=== PATIENT | female | born 1950 | race Hispanic/Latino ===

== ENCOUNTER 2017-12-11 12:08 | Emergency (ER) | payer OTHER ==
[2017-12-11 14:25] LABS: Protime INR 1.08
[2017-12-11 14:26] LABS: Absolute Lymphocytes (CBC) 0.9 K/uL (0.7-4.9); Absolute Monocytes 0.2 K/uL (0.1-1.3); Absolute Neutrophil 5.5 K/uL (1.8-8.0); Basophils % 0.3 % (0-1.3); Hematocrit 35.3 % (36.0-45.0); Lymphocytes % 13.8 % (15.3-44.8); MCH 30.5 pg (27.0-35.0); MCV 92.4 fL (80-100); MPV 9.1 fL (7.6-11.3); Monocytes % 3.4 % (3.3-12.3); RBC Red Blood Cell Count 3.82 M/uL (3.86-4.86)
--- NOTE | 2017-12-11 14:37 | ER ---
Nurse's Notes [facility] Name: Lisa Pierre Age: 67 yrs Sex: Female : 1950 Arrival Date: 12/11/2017 Time: 12:10 Bed 20 Private MD: Juventino Kirk Diagnosis: Epistaxis Presentation: 12/11 12:21 Presenting complaint: Patient states: heavy nose bleed that started around 11 am today, hj took a shower and when she got out it started; happened 2x already, last time was 2 months ago; taking blood thinners;. Transition of care: patient was not received from another setting of care. Onset of symptoms was December 11, 2017. Care prior to arrival: None. 12:21 Method Of Arrival: Ambulatory 12:21 Acuity: DYLAN 4 hj Triage Assessment: 12:24 General: Appears in no apparent distress. uncomfortable, Behavior is calm, cooperative, hj appropriate for age. Pain: Denies pain. Historical: - Allergies: 12:24 No Known Allergies; hj - Home Meds: 12:24 Plavix 75 mg Oral tab 1 tab once daily [Active]; atorvastatin oral oral [Active]; hj - PMHx: 12:24 Hyperlipidemia; hj - PSHx: 12:24 back Sx; stent x1 to heart; hj - Immunization history:: Adult Immunizations up to date. - Social history:: Smoking status: Patient/guardian denies using tobacco. Screenin:20 Abuse screen: Denies threats or abuse. Nutritional screening: No deficits noted. em Tuberculosis screening: No symptoms or risk factors identified. Fall Risk None identified. Assessment: 13:00 General: Appears in no apparent distress. uncomfortable, Behavior is calm, cooperative, em Reports nose bleed that started about 30 minutes ago, hx of blood thinners, takes Plavix 75mg. Pain: Denies pain. Neuro: Level of Consciousness is awake, alert, obeys commands, Oriented to person, place, time, situation. Neuro: Denies dizziness, numbness. Cardiovascular: Capillary refill < 3 seconds Patient's skin is warm and dry. Respiratory: Airway is patent Respiratory effort is even, unlabored, Respiratory pattern is regular, symmetrical. GI: Abdomen is round non-distended, Patient currently denies nausea, vomiting. : No signs and/or symptoms were reported regarding the genitourinary system. EENT: No signs and/or symptoms were reported regarding the EENT system. Derm: Skin is intact, Skin is pink, warm \T\ dry. Musculoskeletal: Range of motion: intact in all extremities. 13:15 Reassessment: Patient appears in no apparent distress at this time. I agree with above iw assessment by Napoleon Ward LVN. 14:19 Reassessment: Patient appears in no apparent distress at this time. Patient and/or em family updated on plan of care and expected duration. Pain level reassessed. Patient is alert, oriented x 3, equal unlabored respirations, skin warm/dry/pink. 14:55 Reassessment: Patient appears in no apparent distress at this time. Patient and/or em family updated on plan of care and expected duration. Pain level reassessed. Patient is alert, oriented x 3, equal unlabored respirations, skin warm/dry/pink. Vital Signs: 12:25 BP 158 / 89; Pulse 102; Resp 18; Temp 98.3(O); Pulse Ox 97% on R/A; Weight 88.9 kg; hj Height 5 ft. 7 in. (170.18 cm); Pain 0/10; 14:08 BP 143 / 89; Pulse 85; Resp 16; Pulse Ox 99% on R/A; mh5 14:55 BP 133 / 87; Pulse 94; Resp 15; Pulse Ox 99% on R/A; Pain 0/10; em 12:25 Body Mass Index 30.70 (88.90 kg, 170.18 cm) ED Course: 12:10 Patient arrived in ED. mr 12:10 Juventino Kirk DO is Private Physician. mr 12:23 Triage completed. hj 12:26 Arm band placed on left wrist. hj 12:43 Renita Macias [facility]-C [facility]. kb 12:43 Fabio Bowden MD is Attending Physician. kb 13:00 Bed in low position. Call light in reach. Side rails up X2. Adult w/ patient. nose clap em placed. 13:00 No provider procedures requiring assistance completed. em 14:00 Inserted saline lock: 22 gauge in left antecubital area, using aseptic technique. Blood em collected. 14:00 Initial lab(s) drawn, by me, sent to lab. em 14:10 Napoleon Ward LVN is Primary Nurse. em 15:07 IV discontinued, intact, bleeding controlled, No redness/swelling at site. Pressure em dressing applied. Administered Medications: No medications were administered Outcome: 14:36 Discharge ordered by . kb 15:07 Discharged to home via wheelchair. em 15:07 Condition: good 15:07 Discharge instructions given to patient, family, Instructed on discharge instructions, follow up and referral plans. Demonstrated understanding of instructions, follow-up care. 15:08 Patient left the ED. em Signatures: Renita Macias, GRIFFIN ELIGIBILITY ANALYST-Emma Martínez mr Ward Napoleon, CONTENT MANAGER CONTENT MANAGER em Minerva Marquez, RN MINO Estevan Barriga RN RN Emma Billings[facility] Corrections: (The following items were deleted from the chart) 12:26 12:25 Pulse 102bpm; Resp 18bpm; Pulse Ox 97% RA; Temp 98.3F Oral; 88.9 kg; Height 5 ft. hj 7 in.; BMI: 30.7; Pain 0/10; hj
--- NOTE | 2017-12-11 14:37 | EDPHYS ---
Physician Documentation [facility] Name: Lisa Pierre Age: 67 yrs Sex: Female : 1950 Arrival Date: 12/11/2017 Time: 12:10 Bed 20 Private MD: Juventino Kirk ED Physician Fabio Bowden HPI: 12/11 13:05 This 67 yrs old Female presents to ER via Ambulatory with complaints of Nose kb Bleed. 13:05 The patient presents with a nose bleed, that is apparently anterior, from the right kb nare, occurred from an unknown cause, that is continuous small amount without clots, causative factors include: unknown, and the bleeding is not resolved and continues in ER. Onset: The symptoms/episode began/occurred just prior to arrival. Modifying factors: The symptoms are alleviated by nothing. the symptoms are aggravated by nothing. Associated signs and symptoms: Loss of consciousness: the patient experienced no loss of consciousness, Pertinent positives: bleeding. Severity of symptoms: At their worst the symptoms were mild moderate in the emergency department the symptoms are unchanged. The patient has experienced a previous episode, approximately 2 months ago. The patient has not recently seen a physician. Historical: - Allergies: 12:24 No Known Allergies; hj - Home Meds: 12:24 Plavix 75 mg Oral tab 1 tab once daily [Active]; atorvastatin oral oral [Active]; hj - PMHx: 12:24 Hyperlipidemia; hj - PSHx: 12:24 back Sx; stent x1 to heart; hj - Immunization history:: Adult Immunizations up to date. - Social history:: Smoking status: Patient/guardian denies using tobacco. ROS: 13:05 Constitutional: Negative for fever, chills, and weight loss, Cardiovascular: Negative kb for chest pain, palpitations, and edema, Respiratory: Negative for shortness of breath, cough, wheezing, and pleuritic chest pain, Abdomen/GI: Negative for abdominal pain, nausea, vomiting, diarrhea, and constipation, MS/Extremity: Negative for injury and deformity, Skin: Negative for injury, rash, and discoloration, Neuro: Negative for headache, weakness, numbness, tingling, and seizure. 13:05 ENT: Positive for nose bleed. Exam: 13:05 Constitutional: This is a well developed, well nourished patient who is awake, alert, kb and in no acute distress. Head/Face: Normocephalic, atraumatic. Chest/axilla: Normal chest wall appearance and motion. Nontender with no deformity. No lesions are appreciated. Cardiovascular: Regular rate and rhythm with a normal S1 and S2. No gallops, murmurs, or rubs. Normal PMI, no JVD. No pulse deficits. Respiratory: Lungs have equal breath sounds bilaterally, clear to auscultation and percussion. No rales, rhonchi or wheezes noted. No increased work of breathing, no retractions or nasal flaring. Abdomen/GI: Soft, non-tender, with normal bowel sounds. No distension or tympany. No guarding or rebound. No evidence of tenderness throughout. Skin: Warm, dry with normal turgor. Normal color with no rashes, no lesions, and no evidence of cellulitis. MS/ Extremity: Pulses equal, no cyanosis. Neurovascular intact. Full, normal range of motion. Neuro: Awake and alert, GCS 15, oriented to person, place, time, and situation. Cranial nerves II-XII grossly intact. Motor strength 5/5 in all extremities. Sensory grossly intact. Cerebellar exam normal. Normal gait. 13:05 ENT: Nose: bleeding, is seen from the right nare, and is minimal. Vital Signs: 12:25 BP 158 / 89; Pulse 102; Resp 18; Temp 98.3(O); Pulse Ox 97% on R/A; Weight 88.9 kg; hj Height 5 ft. 7 in. (170.18 cm); Pain 0/10; 14:08 BP 143 / 89; Pulse 85; Resp 16; Pulse Ox 99% on R/A; mh5 14:55 BP 133 / 87; Pulse 94; Resp 15; Pulse Ox 99% on R/A; Pain 0/10; em 12:25 Body Mass Index 30.70 (88.90 kg, 170.18 cm) MDM: 12:43 Patient medically screened. kb 13:05 Data reviewed: vital signs, nurses notes. Data interpreted: Pulse oximetry: on room air kb is 97 %. Interpretation: normal. 14:29 Counseling: I had a detailed discussion with the patient and/or guardian regarding: the kb historical points, exam findings, and any diagnostic results supporting the discharge/admit diagnosis, lab results, the need for outpatient follow up, an ENT specialist, to return to the emergency department if symptoms worsen or persist or if there are any questions or concerns that arise at home. 14:36 ED course: Bleeding has resolved. . kb 12/11 13:34 Order name: Protime (+inr) kb 12/11 13:34 Order name: Ptt, Activated kb 12/11 13:34 Order name: CBC with Diff kb 12/11 14:28 Order name: Protime (+INR); Complete Time: 14:29 EDMS 12/11 14:28 Order name: PTT, Activated Partial Thromb; Complete Time: 14:29 EDMS 12/11 14:28 Order name: CBC with Automated Diff; Complete Time: 14:29 EDMS Administered Medications: No medications were administered Disposition: 17:30 Co-signature as Attending Physician, Fabio Bowden MD I agree with the assessment and kdr plan of care. Disposition: 12/11/17 14:36 Discharged to Home. Impression: Epistaxis. - Condition is Stable. - Discharge Instructions: Nosebleed, [id number]. - Medication Reconciliation Form, Thank You Letter, Antibiotic Education, Prescription Opioid Use form. - Follow up: Emergency Department; When: As needed; Reason: Worsening of condition. Follow up: Private Physician; When: 2 - 3 days; Reason: Recheck today's complaints, Continuance of care, Re-evaluation by your physician. Signatures: Dispatcher [employer] Renita Lovett, SOCIAL SCIENCES INSTRUCTOR-C SOCIAL SCIENCES INSTRUCTOR-Geraldob Fabio Bowden MD MD kdr Munoz, Edgar, BRAND DESIGNER BRAND DESIGNER Estevan Umanzor, RN RN
[2017-12-11 15:19] VITALS: TEMP 98.3
[2017-12-11 15:21] VITALS: O2SAT 99
[2017-12-11 15:22] VITALS: BP 133/87
== END 2017-12-11 15:08 | disposition home or self-care (01) ==
LOC: ER 12:08
DX: R04.0 Epistaxis (principal); E78.5 Hyperlipidemia, unspecified; Z95.818 Presence of other cardiac implants and grafts; Z79.01 Long term (current) use of anticoagulants
CPT/HCPCS: 36415; 85025; 85610; 85730; 99283

== ENCOUNTER 2019-11-28 15:26 | Emergency (ER) | payer OTHER ==
--- OUTSIDE RECORDS SUMMARY | 2019-11-28 15:28 | XMS REPORT ---
:1950 Author Organization eClinicalWorks Care Team Providers Name Role Phone Juventino Kirk Provider Role Unavailable Allergies, Adverse Reactions, Alerts Substance Reaction Event Type N.K.D.A. 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 Problem Degenerative joint disease M19.90 Active Assessment Urinary incontinence, unspecified R32 Active type Problem Vitamin B 12 deficiency E53.8 Active Assessment Non-traumatic compression fracture M48.54XA Active of fourth thoracic vertebra, initial encounter Problem Coronary artery disease I25.10 Active Problem Other cervical disc degeneration, M50.30 Active unspecified cervical region Problem Osteoporosis M81.0 Active Problem Adult BMI 32.0-32.9 kg/sq m Z68.32 Active Problem Urinary incontinence, unspecified R32 Active type Assessment Prediabetes R73.03 Active Assessment Osteoporosis M81.0 Active Problem Varicose veins of left lower I83.892 Active extremity with other complications Assessment Varicose veins of left lower I83.892 Active extremity with other complications Problem 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 Problem Carotid artery occlusion I65.29 Active Problem Rotator cuff syndrome of right M75.101 Active shoulder Problem Prediabetes R73.03 Active Problem Non-traumatic compression fracture M48.54XA Active of fourth thoracic vertebra, initial encounter Problem History of compression fracture of Z87.81 Active vertebral column Assessment Hyperlipidemia, mixed E78.2 Active Problem Generalized osteoarthrosis M15.9 Active Problem Hyperlipidemia, mixed E78.2 Active Problem Primary osteoarthritis of both M17.0 Active knees Problem Disc degeneration, lumbosacral M51.37 Active Medications Medication Code Code Instructions Start End Status Dosage System Date Date myrbetriq XR [facility] 57566086123 50mg po Qday DecemberJul 12, Active 1 tablet 2018 Tylenol # [address] [facility] 0 300/30mg PO BID Active one tab PRN Lipitor [facility] 68015360522 40 MG Orally Active 1 tablet Once a day Aspir-81 [facility] 67741475563 81 MG Orally Active 1 tablet Once a day Prolia [facility] 50929068985 60 MG/ML Active 60 mg by Subcutaneous injection every 6 months Lipitor [facility] 41069132858 40 MG Orally Active 1 tablet Once a day Results No Known Results Summary Purpose eClinicalWorks Submission
--- OUTSIDE RECORDS SUMMARY | 2019-11-28 15:29 | XMS REPORT ---
:1950 Author Organization eClinicalWorks Care Team Providers Name Role Phone Juventino Kirk Provider Role Unavailable Allergies, Adverse Reactions, Alerts Substance Reaction Event Type N.K.D.A. 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 Problem Degenerative joint disease M19.90 Active Assessment Carotid artery occlusion I65.29 Active Problem Vitamin B 12 deficiency E53.8 Active Assessment Urinary incontinence, unspecified R32 Active type Problem Coronary artery disease I25.10 Active Problem Other cervical disc degeneration, M50.30 Active unspecified cervical region Problem Osteoporosis M81.0 Active Problem Adult BMI 32.0-32.9 kg/sq m Z68.32 Active Problem Urinary incontinence, unspecified R32 Active type Assessment Hyperlipidemia, mixed E78.2 Active Assessment Osteoporosis M81.0 Active Problem Varicose [...] Active of fourth thoracic vertebra, initial encounter Assessment Vitamin B 12 deficiency E53.8 Active Problem History of compression fracture of Z87.81 Active vertebral column Assessment Coronary artery disease involving I25.119 Active [employer] coronary artery of [place] heart with angina pectoris Problem Generalized osteoarthrosis M15.9 Active Problem Hyperlipidemia, mixed E78.2 Active Problem Primary osteoarthritis of both M17.0 Active knees Problem Disc degeneration, lumbosacral M51.37 Active Medications Medication Code Code Instructions Start End Status Dosage System Date Date Tylenol # 3 NDC 0 300/30mg PO BID Active one tab PRN Aspir-81 [facility] 09744691387 81 MG Orally Active 1 tablet Once a day Lipitor [facility] 92876967059 40 MG Orally Active 1 tablet Once a day Prolia [facility] 51986849457 60 MG/ML Active 60 mg by Subcutaneous injection every 6 months Results No Known Results Summary Purpose eClinicalWorks Submission
--- NOTE | 2019-11-28 16:22 | ER ---
Nurse's Notes [facility] Name: Lisa Pierre Age: 69 yrs Sex: Female : 1950 Arrival Date: 11/28/2019 Time: 15:29 Bed 25 Private MD: Diagnosis: Sprain of ankle Presentation: 11/27 15:33 Chief complaint: Patient's son or daughter states: she said that when she was in [place] tw2 about a week ago she slipped and her ankle rolled its her LEFT ankle, she is able to walk but it starts hurting her more and more. Coronavirus screen: The patient has NOT traveled to a country currently being monitored by the CDC within the last 14 days. Ebola Screen: Patient denies travel to an Ebola-affected area in the 21 days before illness onset. Initial Sepsis Screen: Does the patient meet any 2 criteria? No. Patient's initial sepsis screen is negative. Does the patient have a suspected source of infection? No. Patient's initial sepsis screen is negative. Risk Assessment: Do you want to hurt yourself or someone else? Patient reports no desire to harm self or others. 15:33 Method Of Arrival: Ambulatory tw2 15:33 Acuity: DYLAN 4 tw2 Triage Assessment: 15:32 General: Appears in no apparent distress. obese, well groomed, Behavior is calm, tw2 cooperative, appropriate for age. 16:08 Pain: Complains of pain in left lateral ankle Pain currently is 10 out of 10 on a pain ls4 scale. Neuro: No deficits noted. Cardiovascular: No deficits noted. Respiratory: No deficits noted. Historical: - Allergies: 15:36 No Known Allergies; tw2 - Home Meds: 15:32 atorvastatin Oral [Active]; tw2 15:36 aspirin 81 mg Oral chew 1 tab once daily [Active]; tw2 - PMHx: 15:32 Hyperlipidemia; tw2 - PSHx: 15:32 back Sx; stent x1 to heart; tw2 - Immunization history:: Adult Immunizations. - Social history:: Smoking status: . Screenin:35 Abuse screen: Denies threats or abuse. Denies injuries from another. Nutritional ls4 screening: No deficits noted. Tuberculosis screening: No symptoms or risk factors identified. Fall Risk None identified. Assessment: 16:09 General: SEE TRIAGE. ls4 Vital Signs: 15:33 BP 130 / 76; Pulse 76; Resp 16; Temp 98.1(TE); Pulse Ox 98% on R/A; Weight 90.72 kg tw2 (R); Pain 10/10; ED Course: 15:29 Patient arrived in ED. ag5 15:32 Arm band placed on. tw2 15:35 Triage completed. tw2 15:35 Patient has correct armband on for positive identification. Bed in low position. Call ls4 light in reach. Side rails up X 1. Adult w/ patient. 15:35 No provider procedures requiring assistance completed. Patient did not have IV access ls4 during this emergency room visit. 15:46 Farzaneh Carr FNP-C is PHCP. snw 15:46 Pee Wolfe MD is Attending Physician. snw 16:07 Maria Guadalupe Reid, RN is Primary Nurse. ls4 16:23 Ankle Left 3 View XRAY In Process Unspecified. EDMS Administered Medications: 16:57 Drug: [place] 5 mg-325 mg 1 tabs Route: PO; ls4 Outcome: 16:21 Discharge ordered by . snw 17:20 Patient left the ED. ls4 Signatures: Dispatcher [employer] EDMS Farzaneh Carr FNP-C FREIGHT AND PASSENGER AGENT-Csnw Kaylie Ray RN RN tw2 Maria Guadalupe Reid, RN RN ls4 Buster Srivastava ag5 Corrections: (The following items were deleted from the chart) 15:36 15:32 Allergies: No Known Allergies; tw2 tw2 15:36 15:32 Home Meds: Plavix 75 mg Oral tab 1 tab once daily; tw2 tw2
--- NOTE | 2019-11-28 16:22 | EDPHYS ---
Physician Documentation [facility] Name: Lisa Pierre Age: 69 yrs Sex: Female : 1950 Arrival Date: 11/28/2019 Time: 15:29 Bed 25 Private MD: ED Physician Pee Wolfe HPI: 11/27 16:16 This 69 yrs old Female presents to ER via Ambulatory with complaints of ankle snw injury. 16:16 The patient presents with decreased range of motion, swelling, tenderness. The snw complaints affect the left ankle. Onset: The symptoms/episode began/occurred suddenly, 1 week(s) ago, and became persistent. Context: resulted from a mis-step by the patient, stepped on a rock, The mechanism of injury involved inversion of the affected ankle. The patient can partially bear weight on the affected extremity. Associated signs and symptoms: Pertinent positives: swelling. Severity of symptoms: At their worst the symptoms were moderate. The patient has not experienced similar symptoms in the past. It is unknown whether or not the patient has recently seen a physician. Historical: - Allergies: 15:36 No Known Allergies; tw2 - Home Meds: 15:32 atorvastatin Oral [Active]; tw2 15:36 aspirin 81 mg Oral chew 1 tab once daily [Active]; tw2 - PMHx: 15:32 Hyperlipidemia; tw2 - PSHx: 15:32 back Sx; stent x1 to heart; tw2 - Immunization history:: Adult Immunizations. - Social history:: Smoking status: . ROS: 16:15 Constitutional: Negative for fever, chills, and weight loss, Eyes: Negative for injury, snw pain, redness, and discharge, ENT: Negative for injury, pain, and discharge, Neck: Negative for injury, pain, and swelling, Cardiovascular: Negative for chest pain, palpitations, and edema, Respiratory: Negative for shortness of breath, cough, wheezing, and pleuritic chest pain, Abdomen/GI: Negative for abdominal pain, nausea, vomiting, diarrhea, and constipation, Back: Negative for injury and pain, : Negative for injury, bleeding, discharge, and swelling, Skin: Negative for injury, rash, and discoloration, Neuro: Negative for headache, weakness, numbness, tingling, and seizure. 16:15 MS/extremity: Positive for injury or acute deformity, pain, swelling, of the left lateral ankle and anterior foot. Exam: 16:14 Constitutional: This is a well developed, well nourished patient who is awake, alert, snw and in no acute distress. Head/Face: Normocephalic, atraumatic. Eyes: Pupils equal round and reactive to light, extra-ocular motions intact. Lids and lashes normal. Conjunctiva and sclera are non-icteric and not injected. Cornea within normal limits. Periorbital areas with no swelling, redness, or edema. ENT: Nares patent. No nasal discharge, no septal abnormalities noted. Tympanic membranes are normal and external auditory canals are clear. Oropharynx with no redness, swelling, or masses, exudates, or evidence of obstruction, uvula midline. Mucous membranes moist. Neck: Trachea midline, no thyromegaly or masses palpated, and no cervical lymphadenopathy. Supple, full range of motion without nuchal rigidity, or vertebral point tenderness. No Meningismus. Chest/axilla: Normal chest wall appearance and motion. Nontender with no deformity. No lesions are appreciated. Cardiovascular: Regular rate and rhythm with a normal S1 and S2. No gallops, murmurs, or rubs. Normal PMI, no JVD. No pulse deficits. Respiratory: Lungs have equal breath sounds bilaterally, clear to auscultation and percussion. No rales, rhonchi or wheezes noted. No increased work of breathing, no retractions or nasal flaring. Abdomen/GI: Soft, non-tender, with normal bowel sounds. No distension or tympany. No guarding or rebound. No evidence of tenderness throughout. Back: No spinal tenderness. No costovertebral tenderness. Full range of motion. Skin: Warm, dry with normal turgor. Normal color with no rashes, no lesions, and no evidence of cellulitis. Neuro: Awake and alert, GCS 15, oriented to person, place, time, and situation. Cranial nerves II-XII grossly intact. Motor strength 5/5 in all extremities. Sensory grossly intact. Cerebellar exam normal. Normal gait. Psych: Awake, alert, with orientation to person, place and time. Behavior, mood, and affect are within normal limits. 16:14 Musculoskeletal/extremity: Extremities: grossly normal except: noted in the left ankle/anterior foot: swelling, tenderness, mild warmth, ROM: no acute changes, Circulation is intact in all extremities. Sensation intact. Vital Signs: 15:33 BP 130 / 76; Pulse 76; Resp 16; Temp 98.1(TE); Pulse Ox 98% on R/A; Weight 90.72 kg tw2 (R); Pain 10/10; MDM: 15:55 Patient medically screened. snw 16:23 Data reviewed: vital signs, nurses notes. Data interpreted: Pulse oximetry: on room air snw is 98 %. Interpretation: normal. Counseling: I had a detailed discussion with the patient and/or guardian regarding: the historical points, exam findings, and any diagnostic results supporting the discharge/admit diagnosis, the presence of at least one elevated blood pressure reading (>120/80) during this emergency department visit, radiology results, the need for outpatient follow up, to return to the emergency department if symptoms worsen or persist or if there are any questions or concerns that arise at home. Special discussion: Based on the history and exam findings, there is no indication for further emergent testing or inpatient evaluation. I discussed with the patient/guardian the need to see the orthopedic surgeon for further evaluation of the symptoms. 11/27 15:47 Order name: Ankle Left 3 View XRAY; Complete Time: 16:34 snw 11/27 16:20 Order name: Walking boot; Complete Time: 16:48 snw Administered Medications: 16:57 Drug: [place] 5 mg-325 mg 1 tabs Route: PO; ls4 Disposition: 17:36 Co-signature as Attending Physician, Pee Wolfe MD. rn Disposition: 11/28/19 16:21 Discharged to Home. Impression: Sprain of ankle. - Condition is Stable. - Discharge Instructions: Ankle Sprain, How to Use a Walker, Cryotherapy, Heat Therapy, Walking Boot. - Prescriptions for Mobic 7.5 mg Oral Tablet - take 1 tablet by ORAL route once daily take with food; 20 tablet. - Medication Reconciliation Form, Thank You Letter, Antibiotic Education, Prescription Opioid Use form. - Follow up: Emergency Department; When: As needed; Reason: Worsening of condition. Follow up: Private Physician; When: 2 - 3 days; Reason: Recheck today's complaints, Continuance of care, Re-evaluation by your physician. Signatures: Dispatcher [facility] Sherrie Ramosy, DATA SCIENTIST-C DATA SCIENTIST-Csnw Pee Wolfe MD MD rn Wise, Tara, RN RN tw2 Maria Guadalupe Reid RN RN ls4 Corrections: (The following items were deleted from the chart) 15:36 15:32 Allergies: No Known Allergies; 15:36 15:32 Home Meds: Plavix 75 mg Oral tab 1 tab once daily; 17:20 16:21 11/28/2019 16:21 Discharged to Home. Impression: Sprain of ankle. Condition is ls4 Stable. Forms are Medication Reconciliation Form, Thank You Letter, Antibiotic Education, Prescription Opioid Use. Follow up: Emergency Department; When: As needed; Reason: Worsening of condition. Follow up: Private Physician; When: 2 - 3 days; Reason: Recheck today's complaints, Continuance of care, Re-evaluation by your physician. snw
--- NOTE | 2019-11-28 16:30 | RAD REPORT ---
EXAM DESCRIPTION: RAD - Ankle Left 3 View -11/28/2019 4:23 pm CLINICAL HISTORY: Left ankle pain status post injury FINDINGS: No fracture or dislocation is seen. Soft tissue swelling. Osteoporosis
[2019-11-28] MEDS ORDERED: HYDROCODONE/APAP 5/325 MG TAB ONE (17:06)
[2019-11-28 17:33] VITALS: BP 130/76; TEMP 98.1; O2SAT 98
== END 2019-11-28 17:20 | disposition home or self-care (01) ==
LOC: ER 15:26
DX: S93.402A Sprain of unspecified ligament of left ankle, initial encounter (principal); W22.8XXA Striking against or struck by other objects, initial encounter; Y93.01 Activity, walking, marching and hiking; Y92.9 Unspecified place or not applicable; E78.5 Hyperlipidemia, unspecified; Z79.82 Long term (current) use of aspirin; Z95.818 Presence of other cardiac implants and grafts
CPT/HCPCS: 99283

== ENCOUNTER 2024-05-13 06:00 | Observation (INO) | payer OTHER ==
[2024-05-07 09:39] LABS: Absolute Lymphocytes (CBC) 2.2 K/uL (0.7-4.9); Absolute Monocytes 0.6 K/uL (0.1-1.3); Absolute Neutrophil 2.8 K/uL (1.8-8.0); Basophils % 0.5 % (0-1.3); Eosinophils % 0.9 % (0-4.4); Hematocrit 39.9 % (36.0-45.0); Lymphocytes % 38.9 % (15.3-44.8); MCH 31.9 pg (27.0-35.0); MCHC 32.7 g/dL (32.0-36.0); MCV 97.7 fL (80-100); MPV 9.3 fL (7.6-11.3); Monocytes % 10.6 % (3.3-12.3); Neutrophils % 49.1 % (41.7-73.7); Platelets 183 thou/uL (152-406); RBC Red Blood Cell Count 4.08 M/uL (3.86-4.86); Red Cell Distribution Width 13.7 % (12.1-15.2)
[2024-05-07 09:55] LABS: Anion Gap 6.4 mEq/L (5.0-15.0); Potassium 4.4 mEq/L (3.5-5.1)
--- NOTE | 2024-05-07 10:06 | RAD REPORT ---
EXAM DESCRIPTION: Nan Shi (2 Views)05/07/2024 9:56 am CLINICAL HISTORY: Preop for knee surgery COMPARISON: 2020 FINDINGS: The lungs appear clear of acute infiltrate. The heart is mildly to moderately enlarged Cement has been placed into vertebral body fractures IMPRESSION: No acute abnormalities displayed
[2024-05-07 10:08] LABS: PT Prothrombin Time 11.3 SECONDS (9.4-12.5); Protime INR 1.01
[2024-05-07 10:09] LABS: PTT, Activated Partial Thromb 35.1 SECONDS (24.3-36.9)
[2024-05-13] MEDS: LIDOCAINE 1% MPF 5 ML VIAL ONE (06:10)
[2024-05-13] MEDS: dexAMETHasone 4 MG/ML VIAL ONE (06:11)
[2024-05-13] MEDS: FENTANYL CITR 100 MCG/2 ML ONE (06:11)
[2024-05-13] MEDS: EPINEPHRINE 1 MG/ML VIAL ONE (06:11)
[2024-05-13] MEDS: DEXMEDETOMIDINE HCL 200 MCG/2 ML VIAL ONE (06:11)
[2024-05-13] MEDS: MIDAZOLAM HCL 2 MG/2 ML INJ ONE (06:12)
[2024-05-13] MEDS: BUPIVACAINE 0.25% PF 30 ML VIAL ONE ×2 (06:12→08:55)
[2024-05-13] MEDS: MAGNESIUM SULFATE 1 gm IVPB 1 GM/100 ML BAG IV ONE (06:12)
[2024-05-13] MEDS ORDERED: LIDOCAINE 2% MPF 5 ML VIAL ONE (06:28)
[2024-05-13] MEDS ORDERED: LIDOCAINE 1% MPF 5 ML VIAL ONE (06:28)
[2024-05-13] MEDS ORDERED: KETAMINE HCL IN 0.9 % NACL 50 MG/5 ML SYRINGE IV ONE (06:29)
[2024-05-13] MEDS ORDERED: propofoL 200 MG/20 ML VIAL IV ONE (06:29)
[2024-05-13] MEDS: Ringers Lactate 1,000 ML IV ONE ×2 (06:30→09:49)
[2024-05-13] MEDS: GABAPENTIN 100 MG CAP ONE (06:33)
[2024-05-13] MEDS: CELECOXIB 100 MG CAPSULE ONE (06:38)
[2024-05-13] MEDS: ACETAMINOPHEN 500 MG TAB ONE (06:39)
[2024-05-13] MEDS: Oxycodone HCl/Acetaminophen 5/325 MG TAB ONE (06:40)
[2024-05-13] MEDS: TRANEXAMIC ACID 1,000 MG/10 ML VIAL IV ONE (07:07)
[2024-05-13] MEDS: CEFAZOLIN SODIUM 2 GM/VIAL ONE (08:15)
[2024-05-13] MEDS ORDERED: GLYCOPYRROLATE 0.2 MG/ML SYR ONE (08:27)
[2024-05-13] MEDS ORDERED: ONDANSETRON 4 MG/2 ML VIAL ONE (08:50)
[2024-05-13] MEDS ORDERED: EPHEDRINE SULF 50 MG/ML VIAL ONE (08:55)
--- NOTE | 2024-05-13 10:58 | P.BOP ---
Preoperative diagnosis: right knee osteoarthritis Postoperative diagnosis: Same Primary procedure: Right total knee arthroplasty Forestry Biology Specialist: NONE,NONE Estimated blood loss: 40 cc Specimen: Right knee bone remnants Findings: See dictation Anesthesia: General Complications: None Implants: [employer] [place] 12 CR femur, G tibia, 10 CR poly, 35 patella Fluids & blood products: Per anesthesia record; TT: 81 mins @ 300 mmHg Transferred to: Recovery Room Condition: Good
[2024-05-13] MEDS ORDERED: DOCUSATE NA 100 MG CAP PO PRN (11:06)
[2024-05-13] MEDS ORDERED: ONDANSETRON 4 MG/2 ML VIAL IV PRN (11:06)
[2024-05-13] MEDS ORDERED: ACETAMINOPHEN 325 MG TABLET PO PRN (11:06)
[2024-05-13] MEDS ORDERED: TRAMADOL HCL 50 MG TAB PO PRN (11:09)
--- NOTE | 2024-05-13 11:34 | RAD REPORT ---
EXAM DESCRIPTION: RAD - Knee Right 2 View - 05/13/2024 11:15 am CLINICAL HISTORY: Post Op COMPARISON: No comparisons FINDINGS/IMPRESSION: Status post right knee arthroplasty. No evidence of immediate hardware complica tions. No fractures are identified. Alignment is normal.
[2024-05-13 11:54] LABS: Hematocrit 33.5 % (36.0-45.0); Hemoglobin 11.1 g/dL (12.0-15.0)
[2024-05-13 15:15] VITALS: BMI 29.7
[2024-05-13 15:32] VITALS: O2SAT 98
[2024-05-13] MEDS: CEFAZOLIN SODIUM 2 GM in NA CHLORIDE 0.9% 100 ML IVPB SCH (17:38)
[2024-05-13] MEDS: ATORVASTATIN 40 MG TAB PO SCH (21:33)
[2024-05-14] MEDS: HYDROCODONE/APAP 7.5/325 MG TAB PO PRN (01:10)
[2024-05-14] MEDS: ENOXAPARIN 30 MG/0.3 ML SQ SCH (05:30)
[2024-05-14 07:21] LABS: Hematocrit 32.2 % (36.0-45.0); Hemoglobin 10.7 g/dL (12.0-15.0)
[2024-05-14] MEDS: CELECOXIB 100 MG CAPSULE PO SCH (08:41)
[2024-05-14 13:09] VITALS: BP 102/46; TEMP 97.7
[2024-05-14] MEDS ORDERED: ENOXAPARIN 30 MG/0.3 ML SQ SCH (18:00)
--- NOTE | 2024-05-15 08:14 | P.OP ---
Preoperative diagnosis: right knee osteoarthritis Postoperative diagnosis: same Primary procedure: Right total knee arthroplasty Anesthesia: general Estimated blood loss: 40 cc Specimen: right knee bone remnants Findings: See dictation Operative Technique: Indication For Procedure: Lisa is a 74 year-old female presenting to my clinic with signs, symptoms and x-ray findings consistent with severe right knee osteoarthritis. I discussed with the patient at length risks and benefits associated with operative and nonoperative treatment. She had failed conservative treatment measures and had significant difficulties with ADLs secondary to her pain. We discussed operative treatment and elected to proceed with right total knee arthroplasty. She expressed understanding and elected to proceed with operative treatment. Description Of Procedure: After informed consent was obtained, the patient was identified in the preoperative holding area. The right lower extremity was marked. The patient was then taken to the PACU where she underwent a right lower extremity adductor canal block performed by Anesthesia. She was then taken to the operating room, transferred to the operating table in supine fashion, and placed under general anesthesia. The right lower extremity was then prepped and draped in usual sterile fashion. A time-out was initiated. The correct patient and procedure were confirmed and identified. The patient did receive her preoperative prophylactic antibiotics. The right lower extremity was then exsanguinated and tourniquet was inflated to 300 mmHg. Approximately 15 cm longitudinal incision was made centered over the anterior aspect of the right knee. Dissection was then taken to the extensor mechanism and a medial parapatellar arthrotomy was performed. The patella was everted and dislocated laterally and the knee was flexed in the fat pad. Medial and lateral meniscus and ACL were all excised exposing the distal femur. Excess hype rtrophic synovium was also excised within the suprapatellar pouch. The patient had an MRI of her right knee preoperatively for surgical planning and creation of cutting blocks. The cutting block was then placed over the distal femur and pins were then placed. The distal femoral cutting block was then placed over the pins. An yaw wing was then used to ensure proper depth cut and the distal femur was then cut. The chamfer cutting guide was then placed over the distal end of the femur. Anterior, posterior cuts as well as anterior and posterior chamfer cuts were then made again confirming proper depth of the cut using an Yaw wing. Excess bone remnants were then sent to pathology for further evaluation. Next, attention was taken to the proximal tibia. A tibial jig and tibial cutting block was then placed on proximal aspect of the right tibia and locked into position. Pins were then placed and alignment guide was then used to confirm proper alignment of the cut and then coronal and sagittal planes. Once this was confirmed, the cutting jig was placed over the pins and the proximal tibia was cut. Sizing trays were then selected and size 10 mm spacer was used and there was good overall balance in flexion and extension. Next, the trial implants were then placed using the size 12 standard CR femur and a size G tibia and an 10 mm CR poly. There was overall good range of motion and good stability. The trial implants were then removed. The wound was then irrigated thoroughly with normal saline and the knee was then injected with 20 cc of 0.5% Marcaine both in the posterior capsule and medial and lateral gutters as well as quadriceps tendon and periosteum. The tibia was then punched. The femur was drilled. The cement was then prepared on the back table. Cement was then placed first on the tibial surface followed by size G tibia. Excess cement was removed with [place] elevators. Size 12 standard CR femur was then placed on the distal femur after cement was placed on the distal femur. Excess cement was then removed and a size 10 mm CR trial poly was then placed. The knee was held in extension as the cement hardened. Undersurface of the patella was prepared debriding osteophytes using rongeurs as well as osteophytes.. Cement was placed on the undersurface of the patella after it was cut and a size 35 patella was placed. Once the cement was hardened, the knee was ranged, there was good overall stability both in flexion, extension and as well as stability with varus and valgus stresses. Trial poly was then removed and a size 10 mm CR poly was then placed and locked into position. The knee was then ranged again. There was good overall range of motion both for flexion and extension with good stability. The wound was then irrigated again thoroughly with normal saline using pulse lavage. Tourniquet was let down. Hemostasis was achieved using [place]ovie electrocautery. Extensor mechanism was then approximated using a #1 Vicryl both in interrupted and running fashion. The fascia was then approximated using 0 Vicryl. Subcutaneous tissue was approximated with a 2-0 Vicryl. Skin was approximated using gini. Sterile dressings were applied. The patient was awakened and transferred back in stable condition Complications: None Implants: [employer] [place] 12 CR femur, G tibia, 10 CR poly, 35 patella Fluids & blood products: per anesthesia record; TT: 81 mins @ 300 mmHg Transferred to: Recovery Room Condition: Good
== END 2024-05-14 14:37 | disposition home health service (06) ==
LOC: OR 06:00 → 2ND 11:06
PROVIDERS: ADMIT Orthopaedic Surgery Sports Medicine; ATTEND Orthopaedic Surgery Sports Medicine
PROC: 0SRC0J9 Replacement of Right Knee Joint with Synthetic Substitute, Cemented, Open Approach (ICD-10-PCS; principal; 2024-05-13 08:00)
DX: M17.11 Unilateral primary osteoarthritis, right knee (principal)
CPT/HCPCS: 36415; 71046; 80048; 85014; 85018; 85025; 85610; 85730; 88304; 88305; 88311; 94010; 97116; 97139; 97161; G0378; G0379; J0171; J1100; J1650; J2001; J2250; J2405; J2704; J3010; J3475; J7120